=== PATIENT | female | born 1990 | race Caucasian/White ===

== ENCOUNTER 2017-12-29 08:20 | Emergency (ER) | payer OTHER ==
[2017-12-29 08:32] VITALS: BP 196/73
--- NOTE | 2017-12-29 09:47 | UC ---
Dana Caldwell Tenzin, scribed for Melody Zamorano MD on 12/29/17 at 0917 . Dental HPI - HPI Summary HPI Summary: Pt is a 27 years old female presenting to the complaining of pain in her left upper face from bad tooth since few months ago. The pain is constant and she notes that she will have it pulled out next week. Pt describes the pain as aching. Pt denies ear pain, drooling, sore throat and fever. No aggravating and alleviating factors were noted. Pt notes that she took 600 mg Advil at 6:00 this morning and it alleviate her pain. She is not . She is not allergic to any medications. She does not smoke but drinks occasionally. Pt has dental appointment next week pt's medications reviewed this visit - History of Current Complaint Chief Complaint: UCDentalProblem Stated Complaint: DENTAL Hx Obtained From: Patient Hx Last Menstrual Period: 12/04/17 Onset/Duration: Lasting Weeks - more than 4 weeks. Pain Intensity: 0 Aggravating Factor(s): Nothing Alleviating Factor(s): Nothing - Allergies/Home Medications Allergies/Adverse Reactions: Allergies Allergy/AdvReac Type Severity Reaction Status Date / Time No Known Allergies Allergy Verified 12/29/17 08:30 PMH/Surg Hx/FS Hx/Imm Hx - Additional Past Medical History Additional PMH: NEGATIVE: NM, CVA. Previously Healthy: Yes - Surgical History Surgical History: None - Family History Known Family History: Positive: Other - Pt denies any relevant family history. - Social History Occupation: Employed Full-time Lives: With Family Alcohol Use: Occasionally Substance Use Type: None Smoking Status (MU): Never Smoked Tobacco Review of Systems Constitutional: Negative Skin: Negative Eyes: Negative ENT: Dental Pain - and upper left facial pain. Respiratory: Negative Cardiovascular: Negative Gastrointestinal: Negative Genitourinary: Negative Motor: Negative Neurovascular: Negative Musculoskeletal: Negative Neurological: Negative Psychological: Negative All Other Systems Reviewed And Are Negative: Yes Physical Exam - Summary Physical Exam Summary: Vital Signs Reviewed: Yes A+Ox3, no distress Eyes: Conjunctiva Clear, CÉSAR, EOM intact and full ENT: Hearing grossly normal mmmoist #18 tooth + TTP no fluctuance, no drainage, no odor cavity uvula midlne no intraoral edema neck: supple no LA Respiratory: Positive: No respiratory distress, No accessory muscle use Cardiovascular: skin color reflect adequate perfusion Musculoskeletal Exam: CERNA x 4 without difficulty Neurological: Positive: Alert, ambulatory without difficulty Psychological: Positive: Normal Response To Family Skin: Positive: no rash, no ecchymosis Triage Information Reviewed: Yes Vital Signs: Initial Vital Signs Temp 98 F 12/29/17 08:25 Pulse 83 12/29/17 08:25 Resp 16 12/29/17 08:25 BP 196/73 12/29/17 08:25 Pulse Ox 99 12/29/17 08:25 Dental Complaint Course/Dx - Course Course Of Treatment: Pt with dental pain #18. no intraoral edema. pt has denitst. abx. motrin/apap. swish/spit. return precautions - Differential Dx/Diagnosis Provider Diagnoses: dental pain Discharge - Sign-Out/Discharge Documenting (check all that apply): Discharge/Admit/Transfer - Discharge Plan Condition: Stable Disposition: HOME Prescriptions: Amoxicillin PO (*) [Amoxicillin 500 MG CAP*] 500 mg PO TID #21 cap Referrals: No Primary Care Phys,NOPCP [Primary Care Provider] - Additional Instructions: - Okay to alternate ibuprofen (Advil, Motrin)600mg and Tylenol every 3 hours for pain. Take with food. Do NOT take for more than 4-5 days -Swish and spit with warm salt water 3-4 times a day -Take anitbiotics as prescribed until gone - Okay to use over the counter numbing medication every 4-6 hours for pain -Stay well hydrated - frequent sips of cold fluids will be soothing to your throat (popsicles, jello, ice cream, ice water) -Keep your appointment with your dentist next week as scheduled. If you have increased pain, fever, difficulty swallowing, increased facial infection or other concerns it is recommended you go to the emergency department - Billing Disposition and Condition Condition: STABLE Disposition: Home The documentation as recorded by the Dana murphy Tenzin accurately reflects the service I personally performed and the decisions made by , Melody Zamorano MD.
== END 2017-12-29 09:50 | disposition home or self-care (01) ==
LOC: UCEAST 08:20
DX: K08.89 Other specified disorders of teeth and supporting structures (principal)
CPT/HCPCS: 99202; G0463

== ENCOUNTER 2018-04-14 15:53 | Emergency (ER) | payer OTHER ==
[2018-04-14 16:05] VITALS: BP 126/77
--- NOTE | 2018-04-14 16:35 | UC ---
Complaint Female HPI - HPI Summary HPI Summary: Is a 27-year-old female with a one-week history of urinary frequency and urgency. She denies any vaginal discharge or itching. She has no fever or chills. She denies any nausea vomiting or diarrhea. Never had a UTI. She denies any back pain. - History Of Current Complaint Chief Complaint: UCGU Stated Complaint: FREQUENT URINATION Time Seen by Provider: 04/14/18 16:23 Hx Obtained From: Patient Hx Last Menstrual Period: 03/20/18 Onset/Duration: Sudden Onset, Lasting Days Timing: Intermittent Severity Initially: Mild Severity Currently: Mild Pain Intensity: 0 Pain Scale Used: 0-10 Numeric - Allergies/Home Medications Allergies/Adverse Reactions: Allergies Allergy/AdvReac Type Severity Reaction Status Date / Time No Known Allergies Allergy Verified 04/14/18 16:05 PMH/Surg Hx/FS Hx/Imm Hx Previously Healthy: Yes - Surgical History Surgical History: None - Family History Known Family History: Positive: Other - Pt denies any relevant family history. - Social History Alcohol Use: Occasionally Substance Use Type: None Smoking Status (MU): Never Smoked Tobacco Review of Systems Constitutional: Negative Skin: Negative Eyes: Negative ENT: Negative Respiratory: Negative Cardiovascular: Negative Gastrointestinal: Negative Genitourinary: Frequency, Urgency Motor: Negative Neurovascular: Negative Musculoskeletal: Negative Neurological: Negative Psychological: Negative Is Patient Immunocompromised?: No All Other Systems Reviewed And Are Negative: Yes Physical Exam Triage Information Reviewed: Yes Appearance: Well-Appearing, No Pain Distress, Well-Nourished Vital Signs: Initial Vital Signs Temp 99.2 F 04/14/18 16:01 Pulse 100 04/14/18 16:01 Resp 16 04/14/18 16:01 BP 126/77 04/14/18 16:01 Pulse Ox 100 04/14/18 16:01 Vital Signs Reviewed: Yes Eyes: Positive: Conjunctiva Clear ENT: Positive: Hearing grossly normal. Negative: Nasal congestion, Nasal drainage, Muffled voice, Hoarse voice Neck: Positive: Supple, Nontender Respiratory: Positive: Lungs clear, Normal breath sounds, No respiratory distress Cardiovascular: Positive: RRR, No Murmur Musculoskeletal: Positive: ROM Intact, No Edema Neurological: Positive: Alert Psychological Exam: Normal Skin Exam: Normal Complaint Female Dx - Course Course Of Treatment: UA ++ leuks - Differential Dx/Diagnosis Provider Diagnoses: UTI Discharge - Sign-Out/Discharge Documenting (check all that apply): Patient Departure All imaging exams completed and their final reports reviewed: No Studies - Discharge Plan Condition: Stable Disposition: HOME Prescriptions: Cephalexin CAP* [Keflex CAP*] 500 mg PO BID #14 cap Patient Education Materials: Urinary Tract Infection in Women (ED) Referrals: No Primary Care Phys,NOPCP [Primary Care Provider] - Additional Instructions: recheck for new or worsening symptoms recheck in 2-3 days if not better a urine culture is pending - Billing Disposition and Condition Condition: STABLE Disposition: Home
== END 2018-04-14 16:58 | disposition home or self-care (01) ==
LOC: UCEAST 15:53
DX: N39.0 Urinary tract infection, site not specified (principal)
CPT/HCPCS: 81003; 87077; 87086; 99212; G0463

== ENCOUNTER 2018-06-30 13:52 | Emergency (ER) | payer OTHER ==
[2018-06-30 14:06] VITALS: BP 109/71
--- NOTE | 2018-06-30 15:00 | UC ---
Throat Pain/Nasal Hunter HPI - HPI Summary HPI Summary: 28 y/o female presents to the urgent care c/o sore throat for the past 3 days. Pt states pain w/ swallowing is 7/10. She has had chill and body aches w/ decrease appetite, but denies fever. She has not taking anything to alleviate symptoms. Pt denies rash, URI, cough, SOB, chest pain, abdominal pain, N/V/D. - History of Current Complaint Chief Complaint: UCGeneralIllness Stated Complaint: SORE THROAT Time Seen by Provider: 06/30/18 14:59 Hx Obtained From: Patient Hx Last Menstrual Period: 06/06/18 ?: No Onset/Duration: Gradual Onset, Lasting Days - 3 days, Still Present, Worse Since - today Severity: Severe Pain Intensity: 7 Pain Scale Used: 0-10 Numeric Cough: None Associated Signs & Symptoms: Positive: Dysphagia. Negative: Hoarseness, Nasal Discharge, Fever, Rash - Epiglottits Risk Factors Epiglottis Risk Factors: Negative - Allergies/Home Medications Allergies/Adverse Reactions: Allergies Allergy/AdvReac Type Severity Reaction Status Date / Time No Known Allergies Allergy Verified 06/30/18 14:07 PMH/Surg Hx/FS Hx/Imm Hx Previously Healthy: Yes - Pt denies PMHX - Surgical History Surgical History: None - Family History Known Family History: Positive: None - Pt denies FMHX, Other - Pt denies any relevant family history. - Social History Occupation: Employed Full-time Lives: With Family Alcohol Use: Occasionally Substance Use Type: None Smoking Status (MU): Never Smoked Tobacco Review of Systems All Other Systems Reviewed And Are Negative: Yes Constitutional: Positive: Chills Skin: Positive: Negative Eyes: Positive: Negative ENT: Positive: Sore Throat Respiratory: Positive: Negative Cardiovascular: Positive: Negative Gastrointestinal: Positive: Negative Genitourinary: Positive: Negative Motor: Positive: Negative Neurovascular: Positive: Negative Musculoskeletal: Positive: Negative Neurological: Positive: Negative Psychological: Positive: Negative Is Patient Immunocompromised?: No Physical Exam - Summary Physical Exam Summary: VITAL SIGNS: Reviewed. GENERAL: Patient is a well developed and nourished female who is sitting comfortable in the examining table. Patient is not in any acute respiratory distress. HEAD AND FACE: No signs of trauma. No ecchymosis, hematomas or skull depressions. No sinus tenderness. EYES: PERRLA, EOMI x 2, No injected conjunctiva, no nystagmus. No photophobia. EARS: Hearing grossly intact. Ear canals and tympanic membranes are within normal limits. MOUTH: Positive pharynx with erythema, exudates, palatal petechiae. B/L tonsillar enlargement with exudate. Uvula in midline. NECK: Supple, trachea is midline, Positive anterior cervical lymphadenopathy, no JVD, no carotid bruit, no c-spine tenderness, neck with full ROM. No meningeal signs, no Kernig's or brudzinskis signs. CHEST: Symmetric, no tenderness at palpation LUNGS: Clear to auscultation bilaterally. No wheezing or crackles. CVS: Regular rate and rhythm, S1 and S2 present, no murmurs or gallops appreciated. ABDOMEN: Soft, non-tender. No signs of distention. No rebound no guarding, and no masses palpated. Bowel sounds are normal. EXTREMITIES: FROM in all major joints, no edema, no cyanosis or clubbing. NEURO: Alert and oriented x 3. No acute neurological deficits. Speech is normal and follows commands. SKIN: Dry and warm Triage Information Reviewed: Yes Vital Signs: Initial Vital Signs Temp 99 F 06/30/18 14:04 Pulse 110 06/30/18 14:04 Resp 20 06/30/18 14:04 BP 109/71 06/30/18 14:04 Pulse Ox 100 06/30/18 14:04 Throat Pain/Nasal Course/Dx - Course Course Of Treatment: 28 y/o female presents to the urgent care c/o sore throat for the past 3 days. Pt states pain w/ swallowing is 7/10. She has had chill and body aches w/ decrease appetite, but denies fever. She has not taking anything to alleviate symptoms. Pt denies rash, URI, cough, SOB, chest pain, abdominal pain, N/V/D. Hx obtained. PT w/ pharyngitis on examination. Rapid strep ordered: result: positive. Strep pharyngitis. Rx Amoxicillin PO and Ibuprofen PO for pain and swelling. PT Advised on hand washing to avoid spreading. Also advised to rest, eat well and avoid strenuous exercise. If symptoms do not improve or worsen advised to return to the urgent care or f/u with her PCP for further evaluation and treatment. PT understood and agreed - Differential Dx/Diagnosis Differential Diagnosis/HQI/PQRI: Laryngitis, Mononucleosis, Otitis Media, Pharyngitis, Sinusitis, Tonsillitis, URI Provider Diagnosis: Strep pharyngitis Discharge - Sign-Out/Discharge Documenting (check all that apply): Patient Departure - d/c home All imaging exams completed and their final reports reviewed: No Studies - Discharge Plan Condition: Stable Disposition: HOME Prescriptions: Amoxicillin PO (*) [Amoxicillin 500 MG CAP*] 500 mg PO Q12H #20 cap Ibuprofen TAB* [Motrin TAB* 600 MG] 600 mg PO Q6H PRN #30 tab PRN Reason: Sore Throat Patient Education Materials: Strep Throat (ED) Forms: *Work Release Referrals: [facility] [place] [facility] [Outside] - 3 Days Additional Instructions: 1- Please take the full course of the antibiotic to avoid resistance. Take yogurt w/ probiotics to protect your GI system 2-Please take ibuprofen PO q6-8hrs prn as instructed after meals to alleviate pain and swelling. Increase fluid intake, eat well, rest and avoid strenuous exercise 3-If symptoms do not improve or worsen please return to the urgent care or f/u with your PCP in 3 days for further evaluation and treatment. - Billing Disposition and Condition Condition: STABLE Disposition: Home - Attestation Statements Provider Attestation: I was available for consult. This patient was seen by the NEMO. The patient was not presented to, seen by, or examined by me. -Christy
== END 2018-06-30 15:37 | disposition home or self-care (01) ==
LOC: UCEAST 13:52
DX: J02.0 Streptococcal pharyngitis (principal)
CPT/HCPCS: 87651; 99212; G0463

== ENCOUNTER 2019-03-25 16:32 | Emergency (ER) | payer OTHER ==
[2019-03-25 16:38] VITALS: BP 130/74
--- NOTE | 2019-03-25 16:43 | UC ---
Complaint Female HPI - HPI Summary HPI Summary: 28 year old female with c/o urinary urgency, suprapubic discomfort. Denies pain, has had UTIs in past without pain, last several years ago. NO recent ABX use. + sexually active, denies dysparunia, vaginal pain, discharge. Denies possibility of STDs. no flank pain. no fever, chills. - History Of Current Complaint Stated Complaint: URINARY COMPLAINT Time Seen by Provider: 03/25/19 16:37 Hx Obtained From: Patient Hx Last Menstrual Period: 06/06/18 ?: No Onset/Duration: Sudden Onset, Lasting Days Timing: Constant Severity Initially: Mild Severity Currently: Mild Pain Scale Used: 0-10 Numeric Character: Dull Aggravating Factor(s): Urination - frequency, denies pain Associated Signs And Symptoms: Negative: Fever, Back Pain, Vaginal Bleeding/ Discharge, Vaginal Discharge, Nausea - Allergies/Home Medications Allergies/Adverse Reactions: Allergies Allergy/AdvReac Type Severity Reaction Status Date / Time No Known Allergies Allergy Verified 03/25/19 16:38 PMH/Surg Hx/FS Hx/Imm Hx Previously Healthy: Yes - Surgical History Surgical History: None - Family History Known Family History: Positive: None - Pt denies FMHX, Other - Pt denies any relevant family history., Non-Contributory - Social History Alcohol Use: Occasionally Substance Use Type: None Smoking Status (MU): Never Smoked Tobacco Review of Systems All Other Systems Reviewed And Are Negative: Yes Constitutional: Negative: Fever, Chills, Fatigue Genitourinary: Positive: Frequency, Urgency. Negative: Dysuria, Hematuria, Vaginal/Penile Discharge, Vaginal/Penile Pain Motor: Positive: Negative Psychological: Positive: Negative Is Patient Immunocompromised?: No Physical Exam Triage Information Reviewed: Yes Appearance: Well-Appearing, No Pain Distress, Well-Nourished Vital Signs: Initial Vital Signs Temp 99.1 F 03/25/19 16:35 Pulse 101 03/25/19 16:35 Resp 12 03/25/19 16:35 BP 130/74 03/25/19 16:35 Pulse Ox 100 03/25/19 16:35 Vital Signs Reviewed: Yes Eyes: Positive: Conjunctiva Clear ENT: Positive: Hearing grossly normal Respiratory: Positive: Chest non-tender, Lungs clear, Normal breath sounds, No respiratory distress, No accessory muscle use Cardiovascular: Positive: RRR, No Murmur Abdomen Description: Positive: Nontender, No Organomegaly. Negative: CVA Tenderness (R), CVA Tenderness (L) Neurological Exam: Normal Psychological Exam: Normal Skin Exam: Normal Complaint Female Dx - Course Course Of Treatment: Urinary Tract Infection - Increase fluid intake - Tylenol as needed for pain - Antibitoics as directed- may stop after 6 doses if symptoms completed resolved - GO to ER with fever, chills, back pain, increased pain - Differential Dx/Diagnosis Differential Diagnosis/HQI/PQRI: Ureteral Stone, Urinary Tract Infection Provider Diagnosis: UTI (urinary tract infection) Discharge ED - Sign-Out/Discharge Documenting (check all that apply): Patient Departure All imaging exams completed and their final reports reviewed: No Studies - Discharge Plan Condition: Good Disposition: HOME Prescriptions: Sulfamethox/Trimethoprim DS* [Bactrim DS 800/160 TAB*] 1 tab PO BID #10 tab Patient Education Materials: Urinary Tract Infection in Women (DC) Referrals: [facility] [Outside] No Primary Care Phys,NOPCP [Primary Care Provider] - Additional Instructions: Urinary Tract Infection - Increase fluid intake - Tylenol as needed for pain - Antibitoics as directed- may stop after 6 doses if symptoms completed resolved - GO to ER with fever, chills, back pain, increased pain - Billing Disposition and Condition Condition: GOOD Disposition: Home
== END 2019-03-25 17:15 | disposition home or self-care (01) ==
LOC: UCEAST 16:32
DX: N39.0 Urinary tract infection, site not specified (principal)
CPT/HCPCS: 81003; 84702; 87077; 87086; 99212; G0463

== ENCOUNTER 2019-06-25 10:42 | Emergency (ER) | payer SELFPAY ==
[2019-06-25 11:02] VITALS: BP 113/78
--- NOTE | 2019-06-25 11:28 | UC ---
Ear Complaint HPI - HPI Summary HPI Summary: She has had a low level, high pitched ringing in her bilateral ears for the past couple days. She denies any congestion or recent URI. She is not on any new medications - History of Current Complaint Chief Complaint: UCEar Stated Complaint: RINGING IN EARS Time Seen by Provider: 06/25/19 11:11 Hx Obtained From: Patient Hx Last Menstrual Period: 06/08/19 Onset/Duration: Gradual Onset Severity Initially: Mild Severity Currently: Mild Pain Intensity: 0 Aggravating Factors: Nothing Alleviating Factors: Nothing - She can only notice it when she is in a quiet environment. - Allergies/Home Medications Allergies/Adverse Reactions: Allergies Allergy/AdvReac Type Severity Reaction Status Date / Time No Known Allergies Allergy Verified 06/25/19 11:02 Home Medications: Home Medications NK [No Home Medications Reported] 06/25/19 [History Confirmed 06/25/19] PMH/Surg Hx/FS Hx/Imm Hx Previously Healthy: Yes - Surgical History Surgical History: None - Family History Known Family History: Positive: None - Pt denies FMHX, Other - Pt denies any relevant family history., Non-Contributory - Social History Alcohol Use: Occasionally Substance Use Type: None Smoking Status (MU): Never Smoked Tobacco Review of Systems All Other Systems Reviewed And Are Negative: Yes Constitutional: Positive: Negative ENT: Positive: Negative Neurovascular: Positive: Negative Musculoskeletal: Positive: Negative Neurological: Positive: Negative Physical Exam - Summary Physical Exam Summary: She is nontoxic in appearance with stable vital signs Triage Information Reviewed: Yes Appearance: Well-Appearing Vital Signs: Initial Vital Signs Temp 98 F 06/25/19 10:59 Pulse 99 06/25/19 10:59 Resp 20 06/25/19 10:59 BP 113/78 06/25/19 10:59 Pulse Ox 100 06/25/19 10:59 Vital Signs Reviewed: Yes Eyes: Positive: Conjunctiva Clear - She has slight fatiguing, horizontal nystagmus to the left ENT: Positive: Normal ENT inspection, TMs normal Neck exam: Normal Neck: Positive: Supple, No Lymphadenopathy Ear Complaint Course/Dx - Course Course Of Treatment: The etiology of her mild tinnitus is uncertain. I recommended a couple days of meclizine and if completely resolved and does not recur then no further treatment. If it does not resolve or recurs I recommended follow-up with ENT. - Differential Dx/Diagnosis Provider Diagnosis: Tinnitus Discharge ED - Sign-Out/Discharge Documenting (check all that apply): Patient Departure All imaging exams completed and their final reports reviewed: No Studies - Discharge Plan Condition: Stable Disposition: HOME Patient Education Materials: Tinnitus (ED) Referrals: No Primary Care Phys,NOPCP [Primary Care Provider] - Bruno Mejia MD [Medical Doctor] - Additional Instructions: Follow-up with Dr. Mejia if not completely resolved in a 2-3 days or if worsening. - Billing Disposition and Condition Condition: STABLE Disposition: Home
== END 2019-06-25 11:50 | disposition home or self-care (01) ==
LOC: UCEAST 10:42
DX: H93.13 Tinnitus, bilateral (principal)
CPT/HCPCS: 99212; G0463

== ENCOUNTER 2019-08-12 15:08 | Emergency (ER) | payer SELFPAY ==
[2019-08-12 15:38] VITALS: BP 109/71
--- NOTE | 2019-08-12 15:40 | UC ---
Complaint Female HPI - HPI Summary HPI Summary: 29 yo female presents with UTI symptoms. She tells me that for the last 2 days she has had urinary frequency and bladder pressure. She has not taken anything OTC for her symptoms. She denies fever, chills, abdominal pain, n/v, flank pain , vaginal bleeding or discharge. LMP was 08/01/19. She has had UTIs in the past and states this feels the same. - History Of Current Complaint Chief Complaint: UCGU Stated Complaint: PERSONAL Time Seen by Provider: 08/12/19 15:39 Hx Obtained From: Patient Hx Last Menstrual Period: 08/01/19 Onset/Duration: Sudden Onset Severity Currently: None Pain Intensity: 0 - Allergies/Home Medications Allergies/Adverse Reactions: Allergies Allergy/AdvReac Type Severity Reaction Status Date / Time No Known Allergies Allergy Verified 08/12/19 15:38 Home Medications: Home Medications NK [No Home Medications Reported] 08/12/19 [History Confirmed 08/12/19] PMH/Surg Hx/FS Hx/Imm Hx - Additional Past Medical History Additional PMH: None - Surgical History Surgical History: None - Family History Known Family History: Positive: None - Pt denies FMHX - Social History Lives: With Family Alcohol Use: Occasionally Substance Use Type: None Smoking Status (MU): Never Smoked Tobacco Review of Systems All Other Systems Reviewed And Are Negative: No Constitutional: Positive: Negative Skin: Positive: Negative Respiratory: Positive: Negative Cardiovascular: Positive: Negative Gastrointestinal: Positive: Negative Genitourinary: Positive: Frequency Neurological: Positive: Negative Psychological: Positive: Negative Physical Exam - Summary Physical Exam Summary: GENERAL: NAD. WDWN. No pain distress. SKIN: No rashes, sores, lesions, or open wounds. NECK: Supple. Nontender. No lymphadenopathy. CHEST: CTAB. No r/r/w. No accessory muscle use. Breathing comfortably and in no distress. CV: RRR. Pulses intact. Cap refill <2seconds ABDOMEN: Soft. NTTP. No distention or guarding. No CVA tenderness. Bowel sounds present NEURO: Alert. PSYCH: Age appropriate behavior. Triage Information Reviewed: Yes Vital Signs: Initial Vital Signs Temp 99.2 F 08/12/19 15:34 Pulse 100 08/12/19 15:34 Resp 16 08/12/19 15:34 BP 109/71 08/12/19 15:34 Pulse Ox 100 08/12/19 15:34 Laboratory Tests 08/12/19 08/12/19 15:51 15:54 POC Urine Color Yellow POC Urine Clarity Clear POC Urine pH 7.0 POC Ur Specif [place] 1.020 POC Urine Protein Negative POC Ur Glucose (UA) Negative POC Urine Ketones Negative POC Urine Blood Trace-intact POC Urine Nitrite Negative POC Urine Bilirubin Negative POC Urine Urobilinogen 0.2 POC U Leukocyte Esteras Negative POC Ur Test Negative Vital Signs Reviewed: Yes Complaint Female Dx - Course Course Of Treatment: UA and urine negative. POC glucose 108. Urine will be sent for culture for further eval - hold off on treatment at this time and treat based on culture results. Recommend recheck if symptoms do not improve - Differential Dx/Diagnosis Provider Diagnosis: Urinary frequency Discharge ED - Sign-Out/Discharge Documenting (check all that apply): Patient Departure All imaging exams completed and their final reports reviewed: No Studies - Discharge Plan Condition: Stable Disposition: HOME Patient Education Materials: Urinary Urgency and Frequency (DC) Referrals: No Primary Care Phys,NOPCP [Primary Care Provider] - Additional Instructions: If you develop a fever, shortness of breath, chest pain, new or worsening symptoms - please call your PCP or go to the ED immediately. Your urine test did not show any sign of infection today, but was sent to the lab for further testing and we should have results in 2-3 days and will call you with any changes. Your blood sugar check was normal today. If your symptoms do not improve or worsen - please be rechecked - Billing Disposition and Condition Condition: STABLE Disposition: Home
== END 2019-08-12 16:16 | disposition home or self-care (01) ==
LOC: UCEAST 15:08
DX: R35.0 Frequency of micturition (principal)
CPT/HCPCS: 81003; 84702; 87086; 99211; G0463

== ENCOUNTER 2019-09-05 15:54 | Emergency (ER) | payer SELFPAY ==
--- NOTE | 2019-09-05 17:15 | ED ---
Complex/Multi-Sys Presentation - HPI Summary HPI Summary: 29-year-old female significant past medical history presents to the emergency department today complaining of 2 days of fatigue, dry cough, stuffy nose, swollen lymph nodes. Patient believes she had a fever previously however she is asymptomatic at this time. Patient is concerned due to multiple phone lymph nodes of her throat as well as one large hard painful lymph node in her neck. Patient has not taken any medication prior to arrival for alleviation of her symptoms. Patient denies exposure to illness with influenza or mononucleosis. Patient otherwise feels well and denies fever, chest and abdominal pain, nausea , vomiting, diarrhea, unintentional weight loss, night sweats, sore throat, pain with urination. Surgical history and family history is noncontributory. - History Of Current Complaint Chief Complaint: EDGeneral Time Seen by Provider: 09/05/19 16:50 Hx Obtained From: Patient Onset/Duration: Gradual Onset Timing: Constant Severity Currently: Mild Severity Initially: Mild Associated Signs And Symptoms: Positive: Cough, Decreased Oral Intake - Allergies/Home Medications Allergies/Adverse Reactions: Allergies Allergy/AdvReac Type Severity Reaction Status Date / Time No Known Allergies Allergy Verified 09/05/19 16:00 Home Medications: Home Medications NK [No Home Medications Reported] 08/12/19 [History Confirmed 09/05/19] PMH/Surg Hx/FS Hx/Imm Hx Infectious Disease History: No Infectious Disease History: Denies: Traveled Outside the [place] in Last 30 Days - Family History Known Family History: Positive: None - Pt denies FMHX, Other - Pt denies any relevant family history., Non-Contributory - Social History Alcohol Use: Occasionally Substance Use Type: Reports: None Smoking Status (MU): Never Smoked Tobacco Review of Systems Positive: Fatigue. Negative: Fever, Chills Eyes: Negative Positive: Nasal Discharge. Negative: Epistaxis, Dental Pain, Sore Throat Cardiovascular: Negative Positive: Cough Gastrointestinal: Negative Genitourinary: Negative Musculoskeletal: Negative Skin: Negative Neurological/Mental Status: Negative Psychological: Normal All Other Systems Reviewed And Are Negative: Yes Physical Exam - Summary Physical Exam Summary: Patient is in no acute distress. Palpation of the neck revealed lymphadenopathy of the anterior cervical chain as well as posterior cervical chain and occipital chain. There is a 1 cm hard tender lymph node noted in the occipital chain. Pharynx is mildly erythematous with no evidence of tonsillar swelling. Uvula midline. No evidence of rash. Triage Information Reviewed: Yes Vital Signs On Initial Exam: Initial Vitals Temp Pulse Resp BP Pulse Ox 98.6 F 99 18 125/101 100 09/05/19 15:56 09/05/19 15:56 09/05/19 15:56 09/05/19 15:56 09/05/19 15:56 Vital Signs Reviewed: Yes Appearance: Positive: Well-Appearing, No Pain Distress, Well-Nourished Skin: Positive: Warm, Skin Color Reflects Adequate Perfusion Eyes: Positive: EOMI, CÉSAR ENT: Positive: Hearing grossly normal Respiratory/Lung Sounds: Positive: Clear to Auscultation, Breath Sounds Present Cardiovascular: Positive: RRR, S1, S2 Abdomen Description: Positive: Nontender, No Organomegaly, Soft Bowel Sounds: Positive: Present Musculoskeletal: Positive: Strength/ROM Intact Neurological: Positive: Normal, Sensory/Motor Intact, Facial Symmetry, Speech Normal Psychiatric: Positive: Normal, Affect/Mood Appropriate AVPU Assessment: Alert Procedures - Sedation Patient Received Moderate/Deep Sedation with Procedure: No Diagnostics - Vital Signs Vital Signs Temp Pulse Resp BP Pulse Ox 09/05/19 15:56 98.6 F 99 18 125/101 100 - Laboratory Result Diagrams: 09/05/19 17:30 09/05/19 17:30 Lab Statement: Any lab studies that have been ordered have been reviewed, and results considered in the medical decision making process. Complex Multi-Symp Course/Dx Course Of Treatment: Patient was evaluated in the emergency department today for upper respiratory symptoms of lymphadenopathy. Vitals noted. Patient afebrile. Laboratory studies returned showing no leukocytosis, anemia, electrode abnormalities. Monospot negative. Pt does not appear to have any significant medical pathology requiring intervention at this time. Patient discharged with outpatient follow-up. Patient's lymphadenopathy likely due to upper respiratory virus. - Diagnoses Differential Diagnoses/HQI/PQRI: Metabolic Abnormality, Other - Upper respiratory infection. Lymphadenopathy Provider Diagnoses: Lymphadenopathy, Upper respiratory virus Discharge ED - Sign-Out/Discharge Documenting (check all that apply): Patient Departure - Discharge Plan Condition: Critical Disposition: HOME Patient Education Materials: Lymphadenopathy (ED) Referrals: [facility] [Outside] - 3 Days No Primary Care Phys,NOPCP [Primary Care Provider] - Additional Instructions: you were seen in the emergency department today and likely experiencing a viral upper respiratory syndrome. This will resolve on its own. In the meantime please rest and increase oral intake of fluids. Please follow-up with [facility] in 5-7 days for further evaluation and management. Please return to the emergency department immediately if you develop any new or worsening symptoms. - Billing Disposition and Condition Condition: CRITICAL Disposition: Home - Attestation Statements Provider Attestation: I was available for consult. This patient was seen by the NEMO. The patient was not presented to, seen by, or examined by me. Hemal Manjarrez MD
[2019-09-05 17:38] LABS: ABS Eosinophils 0.1 10^3/ul (0-0.6); ABS Lymphocytes 1.4 10^3/ul (1.0-4.8); ABS Monocytes 0.3 10^3/ul (0-0.8); Eosinophil % 2.3 %; Hematocrit 36 % (35-47); Hemoglobin 12.9 g/dL (12.0-16.0); Mean Corpuscular HGB Conc 36 g/dL (31-36); Mean Corpuscular Hemoglobin 30 pg (27-31); Mean Corpuscular Volume 84 fL (80-97); Mean Platelet Volume 9.1 fL (7.4-10.4); Nucleated Red Blood Cells % 0.1; Platelet Count 180 10^3/uL (150-450); Red Blood Count 4.29 10^6 /uL (3.70-4.87); Red Cell Distribution Width 14 % (10-15); White Blood Count 4.9 10^3/uL (3.5-10.8)
[2019-09-05 17:54] LABS: Albumin 4.9 g/dL (3.2-5.2); Calcium 9.3 mg/dL (8.6-10.3); EGFR African American 145.1 (>60); EGFR Non-African American 119.9 (>60); Globulin 2.5 g/dL (2-4); Potassium 3.6 mmol/L (3.5-5.0); Total Protein 7.4 g/dL (6.4-8.9)
[2019-09-05 19:17] VITALS: BP 121/72
== END 2019-09-05 19:16 | disposition home or self-care (01) ==
LOC: ED 15:54
DX: R59.1 Generalized enlarged lymph nodes (principal); J06.9 Acute upper respiratory infection, unspecified
CPT/HCPCS: 36415; 80053; 85025; 86308; 99282